=== PATIENT | female | born 1975 | race Caucasian/White ===

== ENCOUNTER 2022-08-25 14:34 | Emergency (ER) | payer OTHER, SELFPAY ==
--- NOTE | ~2022-08-25 | XR_ITS ---
Left Shoulder Technique: AP and scapular Y views were obtained. Clinical History: Pain, nerve entrapment Findings: No fracture or dislocation is seen. Osseous alignment is anatomic. The glenohumeral and acr omioclavicular joint spaces are preserved. Soft tissues are unremarkable. Impression: Unremarkable left shoulder radiographs. Reviewed, dictated and finalized at [facility]. SOFTWARE ARCHITECT Impression: Unremarkable left shoulder radiographs.
[2022-08-25 14:47] VITALS: BP 187/100; PULSE 101; RESP 18; TEMP 37.4; O2SAT 100
[2022-08-25 14:54] VITALS: BP 187/100; PULSE 101; RESP 18; TEMP 37.4; O2SAT 100
[2022-08-25] MEDS: KETOROLAC (*BKC) 60 MG/2 ML VIAL IM (15:13)
--- NOTE | 2022-08-25 15:53 | ED.GENADULT ---
HPI - General Adult General Chief complaint: Extremity Injury, Upper Stated complaint: Arm Pain Source: patient Mode of arrival: ambulatory Limitations: no limitations History of Present Illness HPI narrative: Patient presents for evaluation of pain in left upper extremity for last 6-8 months. She cannot identify any precipitating cause or injury. She saw her primary provider who had her complete PT. This was ineffective. Pain persisted. She was given a referral to Orthopedics. She has an appointment later this month with Dr Moran. She states the pain is constant, throbbing and shooting. Pain radiates into her neck and down the left arm from the shoulder. She has decreased ROM of left shoulder and elbow. She states she was told she likely has nerve entrapment. She reports tingling in all digits of left hand. She is right hand dominant. She is taking midol for pain. Today she was attempting to open a door using her left hand. She states her left upper extremity got kathy in the process Her pain has not been well controlled since that time. Related Data Home Medications Medication Instructions Recorded Confirmed losartan 50 mg tablet 50 mg PO DAILY 08/25/22 08/25/22 Allergies Allergy/AdvReac Type Severity Reaction Status Date / Time Sulfa (Sulfonamide Allergy Nausea and Verified 08/25/22 14:53 Antibiotics) Vomiting Review of Systems Review of Systems: CONSTITUTIONAL: Denies fever, chills, or sweats. EYES: Denies visual changes, redness, or discharge. ENT: Denies rhinorrhea, congestion, sore throat, or otalgia. CARDIOVASCULAR: Denies chest pain, palpitations, or edema. RESPIRATORY: Denies cough or dyspnea. GASTROINTESTINAL: Denies abdominal pain, nausea, vomiting, or diarrhea. GENITOURINARY: Denies dysuria or hematuria. SKIN: Denies rash or itching. MUSCULOSKELETAL: Reports left upper extremity pain radiating into the neck NEUROLOGIC: Reports tingling in the digits of the left hand. Denies headache dizziness, or weakness. PSYCHIATRIC: Denies anxiety or depression. [facility] Past Medical History Medical History No pertinent past medical history Surgical History Surgical History No pertinent past surgical history Family History Family History Mother Family history non-contributory Social History Social History (Reviewed 08/25/22 @ 16:27 by Joe Frey, [facility], ) Substance use: never Living arrangements: with family Gender identity (if verbalized by the patient): Female Sexual Orientation (if Verbalized by the Patient): Straight or Heterosexual Spiritual care concerns: No Exam Narrative: GENERAL: Well-appearing, well-nourished, and in no acute distress. HEAD: Normocephalic, atraumatic. EYES: PERRLA and EOMI. ENT: Nares clear, no rhinorrhea or epistaxis. Mucous membranes moist. Oropharynx without tonsillar hypertrophy exudate or other lesions. Bilateral TMs pearly muñiz nonbulging NECK: Supple. No adenopathy or masses. No carotid bruits or JVD. Tenderness over left lateral neck. No tenderness in midline or paraspinous muscles of cervical spine CHEST: Clear to auscultation. No respiratory distress. No wheezes rales or rhonchi HEART: Regular rate and rhythm. No murmur heard. Normal peripheral pulses. ABDOMEN: Soft, nontender, nondistended, normal active bowel sounds. EXTREMITIES: Decreased ROM of the left shoulder and elbow 2/2 pain. Tenderness in left shoulder. 3/5 hand reimbursement consultant strength on left. 5/5 hand reimbursement consultant strength on right SKIN: Warm, dry, no rash. NEURO: No focal deficits. Alert and oriented x3. PSYCH: Normal mood and affect. Course Course Emergency Course: This is a 47-year-old female who presented for evaluation of left upper extremity pain. X ray was negative for fracture. She already has a
== END 2022-08-25 15:48 | disposition home or self-care (01) ==
PROVIDERS: Emergency Provider Nurse Practitioner; PCP Nurse Practitioner Family
DX: S46.912A Strain of unspecified muscle, fascia and tendon at shoulder and upper arm level, left arm, initial encounter (principal); X58.XXXA Exposure to other specified factors, initial encounter
CPT/HCPCS: 73030; 96372; 99213; A4565; G0463; J1885